=== PATIENT | male | born 1955 | race Two or more races ===

== ENCOUNTER 2023-08-08 16:52 | Emergency (ER) | payer MEDICAID, OTHER ==
[~2023-08-08] VITALS: Ht 182.9 cm; Wt 90.0 kg
[2023-08-08] MEDS ORDERED: ACE3T PO (21:12)
[2023-08-08] MEDS: HYDROcodone-ACET 5/325MG TAB PO ONE (21:33)
[2023-08-08] MEDS: ONDANSETRON ODT 4 MG TAB PO ONE (21:34)
[2023-08-08 22:04] VITALS: BP 144/87; PULSE 84; RESP 18; TEMP 98.7; O2SAT 96
== END 2023-08-08 22:24 | disposition home or self-care (01) ==
LOC: ER 16:52
DX: S82.52XA Displaced fracture of medial malleolus of left tibia, initial encounter for closed fracture (principal); Z79.899 Other long term (current) drug therapy; W01.0XXA Fall on same level from slipping, tripping and stumbling without subsequent striking against object, initial encounter; Y93.89 Activity, other specified; Y92.89 Other specified places as the place of occurrence of the external cause; Y99.8 Other external cause status
CPT/HCPCS: 29515; 73610; 99283; Q0162